=== PATIENT | male | born 1945 | race Caucasian/White ===

== ENCOUNTER 2020-09-04 13:49 | Outpatient (CLI) | payer MEDICARE, OTHER ==
[2020-09-04 16:28] LABS: Hemoglobin 10.9 g/dL (13.5-17.5); Mean Corpuscular HGB CONC 31.8 g/dL (32.0-36.0); Mean Corpuscular Hemoglobin 31.9 pg (27.0-33.0); Mean Corpuscular Volume 100.3 fl (81.2-95.1); Mean Platelet Volume 11.1 fl (7.4-10.4); Platelet Count 216 10x3/uL (150-450); RBC Distribution Width 14.1 % (11.5-14.5); Red Blood Cell (RBC) Count 3.42 10x6/uL (4.32-5.72); White Blood Cell (WBC) Count 8.3 10x3/uL (3.5-10.5)
[2020-09-04 16:41] LABS: Anion Gap 17 mmol/L (10-20); BUN (Urea Nitrogen) 40 mg/dL (8.4-25.7); Calc. Creatinine Clearance 0 mL/min (70-130); Calcium 8.2 mg/dL (7.8-10.44); Carbon Dioxide 19 mmol/L (23-31); Chloride 107 mmol/L (98-107); Glucose 155 mg/dL (83-110); Potassium 5.3 mmol/L (3.5-5.1); Sodium 138 mmol/L (136-145)
[2020-09-05 01:13] LABS: SARS-CoV-2 PCR by NAA Not Detected (NotDetected)
== END 2020-09-04 13:50 | disposition home or self-care (01) ==
LOC: LABBT 13:49
PROVIDERS: ATTEND Neurological Surgery
DX: Z01.818 Encounter for other preprocedural examination (principal); M48.061 Spinal stenosis, lumbar region without neurogenic claudication; Z20.822 Contact with and (suspected) exposure to COVID-19
CPT/HCPCS: 80048; 85027; 93005; U0003; U0005; 87635; 93010

== ENCOUNTER 2020-09-09 06:32 | Observation (INO) | payer MEDICARE, OTHER ==
[2020-09-07 14:42] VITALS: BMI 36.6
[2020-09-09] MEDS ORDERED: SUGAMMADEX SODIUM 200 MG/2 ML VIAL ONE (06:44)
[2020-09-09] MEDS ORDERED: Fentanyl 100 MCG/2 ML VIAL ONE ×2 (06:44→12:05)
[2020-09-09] MEDS ORDERED: EPINEPHrine 1 MG/ML AMP ONE (07:39)
[2020-09-09] MEDS ORDERED: Bupivacaine PF 0.5% 30 ML VIAL ONE (07:39)
[2020-09-09] MEDS ORDERED: Thrombin 5000 UNITS/5 ML VIAL ONE (07:39)
[2020-09-09] MEDS ORDERED: Ondansetron PF 4 MG/2 ML Vial ONE (10:26)
[2020-09-09] MEDS ORDERED: Rocuronium Bromide 10 MG/ML (10ML VIAL) ONE (10:26)
[2020-09-09] MEDS ORDERED: PHENYLEPHRINE-NS 100 MCG/ML 10 ML SYRINGE ONE (10:26)
[2020-09-09] MEDS ORDERED: PROPOFOL 200 MG/20 ML VIAL ONE (10:26)
[2020-09-09] MEDS ORDERED: Glycopyrrolate 0.2 MG/ML 5 ML SYRINGE ONE (10:26)
[2020-09-09] MEDS ORDERED: Lidocaine 1% PF 5 ML VIAL ONE (10:26)
[2020-09-09] MEDS ORDERED: ePHEDrine Sulfate 50 MG/10 ML VIAL ONE (10:26)
[2020-09-09] MEDS ORDERED: HYDROmorphone 2 MG/ML VIAL ONE (11:18)
[2020-09-09] MEDS ORDERED: Tamsulosin HCl 0.4 MG CAP ONE (12:17)
[2020-09-09] MEDS ORDERED: HYDROcodone/Acetaminophen 5/325 mg Tablet ONE (13:44)
[2020-09-09] MEDS ORDERED: Ondansetron PF 4 MG/2 ML Vial IM PRN (19:44)
[2020-09-09] MEDS ORDERED: tiZANidine HCl 4 MG TAB PO PRN (19:44)
[2020-09-09] MEDS ORDERED: Morphine 4 MG/ML VIAL SLOW IVP PRN (19:45)
[2020-09-09] MEDS ORDERED: Morphine 2 MG/ML VIAL SLOW IVP PRN (19:45)
[2020-09-09] MEDS ORDERED: Bisacodyl 10 MG SUPP PR PRN (19:45)
[2020-09-09] MEDS ORDERED: Acetaminophen 650 MG Suppository PR PRN (19:45)
[2020-09-09] MEDS ORDERED: Acetaminophen 325 MG TAB PO PRN (19:45)
[2020-09-09] MEDS ORDERED: diphenhydrAMINE 25 MG CAP PO PRN (19:45)
[2020-09-09] MEDS ORDERED: diphenhydrAMINE 50 MG/ML VIAL IVP PRN (19:45)
[2020-09-09] MEDS ORDERED: Acetaminophen/Codeine 30-300mg Tablet PO PRN ×2 (19:45)
[2020-09-09] MEDS ORDERED: HumaLOG 300 UNITS/3 ML VIAL SC PRN (19:54)
[2020-09-09] MEDS: Pregabalin 75 MG CAP PO SCH (20:16)
[2020-09-09] MEDS: Sodium Chloride 0.9% 1,000 ML IV SCH (20:20)
[2020-09-09] MEDS: CEFAZOLIN 2 GM in Premix Bag 1 BAG IVPB SCH (20:21)
[2020-09-09] MEDS ORDERED: Lantus 1000 UNITS/10 ML VIAL SC SCH (21:00)
[2020-09-09] MEDS ORDERED: Zolpidem Tartrate 5 MG TAB PO SCH (21:00)
[2020-09-10] MEDS: CEFAZOLIN 2 GM in Premix Bag 1 BAG IVPB SCH (05:26)
[2020-09-10] MEDS ORDERED: Tamsulosin HCl 0.4 MG CAP PO SCH (06:00)
[2020-09-10] MEDS: Pregabalin 75 MG CAP PO SCH (07:57)
[2020-09-10] MEDS ORDERED: Lisinopril 10 MG TAB PO SCH (09:00)
[2020-09-10] MEDS ORDERED: Amlodipine 5 MG TAB PO SCH (09:00)
[2020-09-10] MEDS ORDERED: IMATINIB 400 MG TAB PO SCH (09:00)
[2020-09-10] MEDS ORDERED: Ascorbic Acid 500 mg Chewable Tablet PO SCH (09:00)
[2020-09-10] MEDS ORDERED: Furosemide 40 MG TAB PO SCH (09:00)
[2020-09-10] MEDS ORDERED: Potassium Chloride 20 MEQ TAB PO SCH (09:00)
[2020-09-10] MEDS: Sodium Chloride 0.9% 1,000 ML IV SCH (10:20)
[2020-09-10 12:08] VITALS: BP 112/66; TEMP 97.5
[2020-09-10] MEDS ORDERED: Rosuvastatin 5 MG TAB PO SCH (21:00)
== END 2020-09-10 11:30 | disposition home or self-care (01) ==
LOC: SDC 06:32 → SJJU 17:14
PROVIDERS: ADMIT Neurological Surgery; ATTEND Neurological Surgery
PROC: 01NB0ZZ Release Lumbar Nerve, Open Approach (ICD-10-PCS; principal; 2020-09-09)
DX: M48.062 Spinal stenosis, lumbar region with neurogenic claudication (principal); R33.9 Retention of urine, unspecified; I25.10 Atherosclerotic heart disease of native coronary artery without angina pectoris; I48.91 Unspecified atrial fibrillation; G47.30 Sleep apnea, unspecified; I12.9 Hypertensive chronic kidney disease with stage 1 through stage 4 chronic kidney disease, or unspecified chronic kidney disease; E11.22 Type 2 diabetes mellitus with diabetic chronic kidney disease; N18.9 Chronic kidney disease, unspecified; F17.200 Nicotine dependence, unspecified, uncomplicated; N40.0 Benign prostatic hyperplasia without lower urinary tract symptoms; Z85.6 Personal history of leukemia; Z79.4 Long term (current) use of insulin; Z79.82 Long term (current) use of aspirin; Z79.899 Other long term (current) drug therapy; Z88.8 Allergy status to other drugs, medicaments and biological substances; Z95.1 Presence of aortocoronary bypass graft; Z98.1 Arthrodesis status
CPT/HCPCS: 63047; 76000; 82962 ×2; 96365; 96366; G0378 ×2; 36416; J0171; J0690; J1170; J1815; J2405; J2704; J3010; S0020